=== PATIENT | female | born 1970 | race Caucasian/White ===

== ENCOUNTER 2024-11-22 06:47 | Day surgery (SDC) | payer OTHER ==
[~2024-11-22] VITALS: Ht 162.6 cm; Wt 104.5 kg
[~2024-11-22 06:47] MED LIST: ALBU18HF12 IH; AMLO5TAB66 PO; ASPI-1444 PO; ATOR-2 PO; BACL20TA PO; BECL10.62 PO; CHOL500045 PO; CITA-144 PO; EMPA25TA3 PO; FLUT16H NASAL; FURO40TA5 PO; GABA-1554 PO; INSU3INS3 SQ; METF-444 PO; METO-416 PO; OMEP20CA12 PO; POTA-92 PO; SACU1TAB7 PO; SODIUM CHLORIDE 0.9% 1,000 ML IV ONE; SODIUM CHLORIDE 0.9% 1,000 ML ONE; SPIR50TA27 PO
[2024-11-22] MEDS ORDERED: DULO60CA98 PO (07:12)
[2024-11-22] MEDS ORDERED: BECL10.6 IH (07:12)
[2024-11-22] MEDS ORDERED: LAMO25TA72 PO (07:12)
[2024-11-22] MEDS ORDERED: ACET-2247 PO (07:12)
[2024-11-22] MEDS ORDERED: BECL10.62 IH (07:12)
[2024-11-22] MEDS ORDERED: SEMA2PEN IM (07:12)
[2024-11-22] MEDS ORDERED: FentaNYL CITRATE PF 100 MCG/2 ML VIAL ONE (07:37)
[2024-11-22] MEDS ORDERED: MIDAZOLAM HCL 2 MG/2 ML VIAL ONE (07:38)
[2024-11-22] MEDS: SODIUM CHLORIDE 0.9% 1,000 ML IV ONE (07:44)
[2024-11-22 07:51] LABS: GLUCOMETER DEV NAME(LOC) SDS.; GLUCOSE,POINT OF CARE 96 MG/DL (70-110)
[2024-11-22 09:00] VITALS: PULSE 98; RESP 16; O2SAT 95
[2024-11-22] MEDS ORDERED: MethylPREDNISolone SOD SUCC 125 MG/2 ML VIAL ONE (09:32)
[2024-11-22] MEDS: MethylPREDNISolone SOD SUCC 125 MG/2 ML VIAL IVP ONE (09:49)
[2024-11-22] MEDS ORDERED: LIDOCAINE 4% 50 ML SOLUTION ONE (12:00)
[2024-11-22] MEDS ORDERED: ALBUTEROL SULFATE 2.5 MG/0.5 ML NEB SOLUTION NEB ONE (12:00)
[2024-11-22] MEDS ORDERED: BENZOCAINE 20% 50 MCG/SPRAY 57 GM ONE (12:00)
[2024-11-22] MEDS ORDERED: LEVALBUTEROL 1.25 MG/0.5 ML NEB SOLUTION NEB ONE (12:00)
[2024-11-22] MEDS ORDERED: LIDOCAINE 2% 11 ML JELLY ONE (12:00)
== END 2024-11-22 14:45 | disposition home or self-care (01) ==
LOC: SURGERY 06:47
PROVIDERS: ATTEND Internal Medicine Critical Care Medicine
DX: R05.3 Chronic cough (principal); R04.2 Hemoptysis; J38.4 Edema of larynx; B37.0 Candidal stomatitis; J45.909 Unspecified asthma, uncomplicated; E78.00 Pure hypercholesterolemia, unspecified; I11.0 Hypertensive heart disease with heart failure; I50.9 Heart failure, unspecified; M19.90 Unspecified osteoarthritis, unspecified site; E11.40 Type 2 diabetes mellitus with diabetic neuropathy, unspecified; Z88.6 Allergy status to analgesic agent; Z98.890 Other specified postprocedural states
CPT/HCPCS: 31623; 82962; 87206; 87101; 87220; 87070; 88108; 87015; 31624; 93005; 94640; 71045; J3010; J2250; J2919; J7030; J7613; Z7610